=== PATIENT | male | born 1935 | race Caucasian/White ===

== ENCOUNTER → 2021-08-19 11:07 | Outpatient (CLI) | payer MEDICARE, MEDICAID, SELFPAY ==
--- NOTE | 2021-08-19 11:12 | XR_ITS ---
PROCEDURE: XR HAND LT MIN 3V XR FINGER LT MIN 2V CLINICAL INDICATION: Left hand fracture Pain COMPARISON: CR XR FINGER LT MIN 2V from 08/19/2021 FINDINGS: Left 5th finger: Minimally displaced fracture involves the distal shaft of the 5th metacarpal. There is 2-3 mm radial displacement of the distal fracture fragment. No intra-articular involvement. Left hand: 5th finger fracture. 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 Other findings:A small metallic foreign body lies along the radial and proximal aspect the 2nd proximal phalanx measuring approximately 4 x 1 mm. IMPRESSION: Minimally displaced fracture of the distal shaft of the 5th metacarpal Dictated by: Kanu Mckeon MD 08/19/2021 13:01 Kanu Mckeon MD in [place] 08/19/2021 13:01
== END ==
PROVIDERS: PCP Family Medicine; Visit Provider Orthopaedic Surgery
DX: S62.657D Nondisplaced fracture of middle phalanx of left little finger, subsequent encounter for fracture with routine healing (principal)
CPT/HCPCS: 73130; 73140